=== PATIENT | female | born 1935 | race Caucasian/White ===

== ENCOUNTER → 2016-12-20 | Outpatient (CLI) | payer MEDICARE ==
[2016-12-20 11:16] LABS: Basophils % (A) 1 %; CH 31.6; CHCM 34.5; Eosinophils # (A) 0.3 k/uL (0-0.7); Eosinophils % (A) 5 %; HCT 42.4 % (34.0-46.0); HDW 2.64; HGB 14.5 gm/dL (11.4-16.0); Luc # (Auto) 0.21; Luc % (Auto) 4; Lymphocytes # (A) 1.4 k/uL (1.0-4.8); Lymphocytes % (A) 24 %; MCH 31.6 pg (25.0-35.0); MCHC 34.3 g/dL (31.0-37.0); MCV 92.1 fL (80.0-100.0); Mean Platelet Volume 7.9; Monocytes # (A) 0.3 k/uL (0-1.0); Monocytes % (A) 6 %; Neutrophils # (A) 3.4 k/uL (1.3-7.7); Neutrophils % (A) 61 %; RDW 13.2 % (11.5-15.5); WBC 5.6 k/uL (3.8-10.6); WBC (Perox) 6.14
[2016-12-20 11:28] LABS: Anion Gap 11 mmol/L; Blood Urea Nitrogen 18 mg/dL (7-17); Carbon Dioxide 25 mmol/L (22-30); Chloride 104 mmol/L (98-107); Non-African American GFR(MDRD) >60 (>60 ml/min/1.73 sqM); Potassium 4.4 mmol/L (3.5-5.1); Sodium 140 mmol/L (137-145)
== END | disposition home or self-care (01) ==
LOC: LABWHC1 10:19
PROVIDERS: ATTEND Obstetrics & Gynecology
DX: Z01.812 Encounter for preprocedural laboratory examination (principal); N81.4 Uterovaginal prolapse, unspecified
CPT/HCPCS: 80051; 82565; 84520; 85025; 87086

== ENCOUNTER 2016-12-30 07:49 | Day surgery (SDC) | payer MEDICARE, BC ==
[2016-12-29 12:52] VITALS: BMI 30.1
--- NOTE | 2016-12-29 21:01 | HP ---
DATE OF ADMISSION: 12/30/2016 HISTORY: This is an 81-year-old 11 para 12 woman who has symptomatic grade 3 pelvic prolapse. Specifically, she has a fourth-degree cystocele, third-degree cervical uterine prolapse and second-degree rectocele. She has symptoms of pelvic pressure, difficulty voiding, low back pain and tissue protrusion from the vagina. She denies vaginal bleeding, hematuria or blood in the stool. She denies chronic constipation or diarrhea. After evaluation of the options, she and her family have decided for definitive surgical management in the form of total abdominal hysterectomy with anterior colporrhaphy and possible posterior colporrhaphy. ALLERGIES: NONE. MEDICATIONS: 1. Aspirin 81 mg daily. 2. Calcium 500 mg daily. 3. Celebrex 200 mg p.r.n. 4. Levothyroxine 125 mcg daily. 5. Niacin 500 mg daily. 6. Norvasc 5 mg daily. 7. Zetia 10 mg daily. PAST MEDICAL HISTORY: Hypertension and hypothyroidism. PAST SURGICAL HISTORY: 1. Cataract surgery 2011. 2. Screening colonoscopy 2012. 3. History of knee replacement. 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 SOCIAL HISTORY: She is . Negative for tobacco, alcohol or drug use. She is retired. FAMILY HISTORY: Noncontributory. REVIEW OF SYSTEMS: Negative except for that described above. PHYSICAL EXAMINATION: Blood pressure 160/80, heart rate 72. Weight 170 pounds. Height 5 feet 2 inches. In general, this is a pleasant elderly female in no obvious distress. HEENT exam is unremarkable for any palpable lymphadenopathy or thyromegaly. The heart is of regular rate and rhythm with a mild grade 1 or 2 systolic flow murmur. The lungs are clear to auscultation bilaterally without wheezing. The abdomen is slim, soft and nontender. On pelvic examination, she has atrophic but normal-appearing external genitalia. With Valsalva maneuver there is tissue protrusion from the vagina. On speculum examination she has a fourth-degree cystocele, third-degree cervical uterine prolapse and second-degree rectocele. On bimanual examination the uterus feels small, freely mobile and in the midline. There are no adnexal abnormalities palpable. ASSESSMENT: This is an 81-year-old 11, para 12 woman with symptomatic grade 3 pelvic prolapse, including fourth-degree cystocele and third-degree cervical uterine prolapse. She desires definitive surgical management. She has received medical preoperative clearance. She is scheduled to undergo total vaginal hysterectomy with anterior colporrhaphy, possible posterior colporrhaphy, on 12/30/16. This procedure, its anticipated recovery time and hospital course have been reviewed with the patient and her family members. Risks also were reviewed and include but are not limited to bleeding, transfusion, laparotomy, damage to bowel, bladder, ureters and/or other pelvic and intra-abdominal structures. She may have anesthesia complications, DVT, PE and/or . Patient understands these risks. We also discussed the possibility of recurrence of pelvic prolapse or ongoing incontinence in the future. Consent was obtained. She is scheduled for the above-named procedure on 12/30/16.
[~2016-12-30 07:49] MED LIST: DEXAMETHASONE SOD PHOSPHATE 10 MG/ML 1 ML VIAL IV ONE; FAMOTIDINE 20 MG/2 ML VIAL IV PRN; HYDROmorphone 1 MG/ML 1 ML SYRINGE IVP PRN; LIDOCAINE 1% 20 ML VIAL (10MG/ML) FOR IV START INTRADERMA PRN
[2016-12-30] MEDS: LACTATED RINGERS 1,000 ML IV SCH ×3 (08:43→15:30)
[2016-12-30] MEDS: ONDANSETRON 4 MG/2 ML VIAL IVP ONE ×2 (08:48→11:06)
[2016-12-30] MEDS ORDERED: MORPHINE SULFATE (PF) 0.3 MG/0.3 ML SYR ONE (09:04)
[2016-12-30] MEDS ORDERED: PROPOFOL 10 MG/ML 20 ML VIAL IV ONE (09:04)
[2016-12-30] MEDS ORDERED: BACITRACIN 500 UNIT/GM OINT 28.4 GM TUBE TOPICAL ONE (09:29)
[2016-12-30] MEDS ORDERED: VASOPRESSIN 20 UNIT/ML 1 ML VIAL IV ONE ×3 (09:29)
[2016-12-30] MEDS ORDERED: LACTATED RINGERS 1,000 ML IV ONE (09:58)
--- NOTE | 2016-12-30 10:29 | P.OP ---
Date of Procedure: 12/30/16 Preoperative Diagnosis: Fourth degree cystocele Third degree cervical uterine prolapse Third-degree rectocele Postoperative Diagnosis: Same Procedure(s) Performed: Total vaginal hysterectomy with anterior and posterior colporrhaphy Anesthesia: spinal Surgeon: Danni Burk Ink Technician #1: Huy Mcgarry Estimated Blood Loss (ml): 25 Urine output (ml): 100 Pathology: none sent (Uterus) Condition: stable Disposition: PACU Indications for Procedure: Symptomatic stage III pelvic prolapse Operative Findings: Fourth degree cystocele, third degree cervical uterine prolapse, third-degree rectocele with extensive scarring and rectovaginal varicosities. Description of Procedure: After the patient was met in the preoperative holding area and all her questions were answered, taken to the anesthetic was administered without incident. Appropriate timeout procedure was undertaken. The patient was positioned, prepped and draped in the dorsal lithotomy position. Anesthetic was confirmed adequate. A weighted speculum was placed in the vagina and the above findings were noted. The cervix was grasped anteriorly with a double- tooth tenaculum. Dilute vasopressin solution was then infused in the vaginal mucosa circumferentially about the cervix. Scalpel was then utilized to make a circumferential incision about the cervix. The anterior, lateral and posterior vaginal Koza were then bluntly dissected away from the underlying cervical tissue without difficulty. The posterior peritoneum was placed on countertraction and entered sharply. The peritoneal tissue was tagged with a suture. Short weighted speculum was replaced with the long weighted speculum. The bladder was further advanced anteriorly bluntly. The uterosacral ligaments were then clamped, cut and suture ligated bilaterally. 2-0 Vicryl suture was utilized throughout muscles as indicated. The bladder was further advanced anteriorly and the uterine vasculature was identified. It was clamped, cut and suture ligated bilaterally. The posterior fundus of the uterus was delivered and the cornual pedicles were identified. A window was made in the anterior peritoneum. The cornual pedicles were then clamped, cut and doubly suture ligated. Both pedicles were inspected and hemostasis was noted. Neither ovary was visualized or palpable. The long weighted speculum was then removed and the short weighted speculum was replaced. The peritoneum was then closed in a pursestring fashion. The uterosacral ligaments were reapproximated in the midline incorporating the vaginal cuff for support. The posterior vaginal mucosa was then closed in an interrupted fashion with 0 Vicryl suture. Attention was then turned to the anterior repair. The anterior vaginal Koza was delineated using Allis clamps. The anterior vaginal Koza was then infused with dilute vasopressin solution. Metzenbaum scissors were utilized to superficially undermine the anterior vaginal Koza to a level of approximately 1- 1/2 cm below the urethral meatus. This was incised in the midline. Was delineated using Allis clamps. The bladder was then drained for proxy 100 mL of clear urine and a Mccormick catheter was left in place. The underlying bladder was dissected away from the vaginal mucosa and tilt the vesicovaginal fascia was identified and the bladder could be reduced. The vesicovaginal fascia was then reapproximated in the midline with Darlene plication sutures. Approximately 4 sutures were placed effectively reducing the cystocele. The excess vaginal mucosa was trimmed and the vaginal mucosa was then closed with 0 Vicryl suture in timing 2-0 Vicryl suture in a running locked fashion. Hemostasis was noted. Attention was then turned to the rectocele repair. There is noted to be extensive scarring at the perineum and introitus area consistent with old obstetrical scarring. This area was infused with dilute vasopressin solution as well as the posterior vaginal Koza. The remnants of the hymeneal ring were identified and grasped with Allis clamps. A triangular incision was made at the perineum and excess tissue was removed. The Metzenbaum scissors were utilized to undermine the posterior vaginal mucosa and this was incised approximately 3 cm towards the vaginal cuff. At this point very large perirectal vessels were noted. It was felt to the time of this dissection that this would not be able to be completed without entering into significant vascularity therefore the rectocele was not extended any further superiorly. The small area was repaired using plication stitches. A perineoplasty was then performed effectively decreasing the size of the introitus significantly and improving her prolapse. The skin was then closed over top in a subcuticular fashion. The vagina was then packed using bacitracin-soaked packing. All counts reported to me as correct by the operating staff and the patient was transported to recovery area in stable condition.
[2016-12-30] MEDS ORDERED: ACETAMINOPHEN IV (For NPO) 1,000 MG/100 ML VIAL IVPB ONE (11:12)
[2016-12-30] MEDS ORDERED: METOCLOPRAMIDE 5 MG/ML 2 ML VIAL IVP ONE (11:21)
[2016-12-30] MEDS ORDERED: PROMETHAZINE INJ 25 MG/ML 1 ML VIAL IVPB ONE (11:33)
[2016-12-30] MEDS ORDERED: IBUPROFEN 600 MG TAB PO PRN (12:02)
[2016-12-30] MEDS ORDERED: ONDANSETRON 4 MG/2 ML VIAL IVP PRN (12:02)
[2016-12-30] MEDS ORDERED: diphenhydrAMINE 50 MG/ML 1 ML VIAL IVP PRN (12:02)
[2016-12-30] MEDS ORDERED: Acetaminophen-Codeine 300-30mg TAB PO PRN (12:02)
[2016-12-30] MEDS ORDERED: METOCLOPRAMIDE 5 MG/ML 2 ML VIAL IVP PRN (14:45)
[2016-12-30] MEDS ORDERED: ACETAMINOPHEN IV (For NPO) 1,000 MG in EMPTY BAG 1 BAG IVPB ONE (17:00)
[2016-12-30] MEDS: ONDANSETRON 4 MG/2 ML VIAL IVP PRN (17:09)
[2016-12-30] MEDS: SENNOSIDES-DOCUSATE SODIUM 1 EACH TAB PO SCH (21:09)
[2016-12-31] MEDS: ONDANSETRON 4 MG/2 ML VIAL IVP PRN ×2 (00:32→08:48)
[2016-12-31] MEDS: LACTATED RINGERS 1,000 ML IV SCH ×2 (01:11→10:33)
[2016-12-31] MEDS ORDERED: LEVOTHYROXINE 125 MCG TAB PO SCH (06:30)
[2016-12-31 07:24] LABS: Basophils % (A) 0 %; CHCM 33.5; Eosinophils % (A) 0 %; HCT 37.1 % (34.0-46.0); HDW 2.58; HGB 12.5 gm/dL (11.4-16.0); Luc # (Auto) 0.18; Luc % (Auto) 2; Lymphocytes % (A) 10 %; MCH 31.3 pg (25.0-35.0); MCHC 33.7 g/dL (31.0-37.0); MCV 92.8 fL (80.0-100.0); Mean Platelet Volume 7.2; Monocytes # (A) 0.6 k/uL (0-1.0); Monocytes % (A) 6 %; Neutrophils # (A) 7.4 k/uL (1.3-7.7); Neutrophils % (A) 81 %; RBC 3.99 m/uL (3.80-5.40); RDW 13.2 % (11.5-15.5); WBC 9.2 k/uL (3.8-10.6); WBC (Perox) 9.79
--- NOTE | 2016-12-31 08:30 | P.DS ---
Providers Expected date of discharge: 12/31/16 Attending physician: Danni Burk Primary care physician: Stated None - Discharge Diagnosis(es) (1) S/P hysterectomy Current Visit: Yes Status: Acute (2) Cystocele or rectocele with uterine prolapse Current Visit: Yes Status: Acute (3) Hypertension Current Visit: Yes Status: Acute Hospital Course: This is an 81 year old 11 para 12 woman who had symptomatic grade 3 pelvic prolapse. She was admitted on 12/30/2016 and underwent a total vaginal hysterectomy with anterior and posterior colporrhaphy. Findings at the time of surgery were significant for a grade 4 cystocele, grade 3 cervical uterine prolapse and grade 2 rectocele. She had perineal scarring. Please see the operative report for details. Surgery was done under spinal anesthetic. On postoperative day #1 she is feeling very well. She reports her pain is well- controlled. She has started voiding trials as the Mccormick catheter has been removed. She has no vaginal bleeding and her abdominal exam is benign. She is tolerating a general diet. Her postop day 1 laboratory data is within normal limits and her home medications have been restarted. She will be discharged home later today pending outcomes of voiding trials. Plan - Discharge Summary New Discharge Prescriptions: Acetaminophen-Codeine 300-30mg [Tylenol w/codeine #3] 1 each PO Q4HR PRN #20 tab PRN Reason: Moderate Pain Ibuprofen [Motrin] 600 mg PO Q6HR PRN #30 tab PRN Reason: Mild Discomfort Discharge Medication List Aspirin 81 mg PO DAILY 12/22/16 [History] Calcium Carb/Vitamin D3/Vit K1 [Viactiv Soft Chew Tablet] 1 each PO DAILY [History] Gluc/Bon-MSM#1/C/Cirilo/Kodi/Bor [Glucosamine-Chondroitin Tablet] 1 each PO DAILY 12/22/16 [History] Hydrochlorothiazide [Hydrodiuril] 25 mg PO DAILY 12/22/16 [History] Levothyroxine Sodium [Synthroid] 125 mcg PO DAILY 12/22/16 [History] Multivits-Min/Iron/FA/Lutein [Centrum Silver Women Tablet] 1 each PO DAILY 12/22 [History] Niacin [Niaspan] 500 mg PO DAILY 12/22/16 [History] [place]-3 Fatty Acids/Fish Oil [Fish Oil 1,000 mg Softgel] 1 each PO DAILY [History] amLODIPine [Norvasc] 5 mg PO DAILY 12/22/16 [History] Acetaminophen-Codeine 300-30mg [Tylenol w/codeine #3] 1 each PO Q4HR PRN #20 tab 12/31/16 [Rx] Ibuprofen [Motrin] 600 mg PO Q6HR PRN #30 tab 12/31/16 [Rx] Sennosides-Docusate Sodium [Senokot-S] 2 each PO BID tab 12/31/16 [Rx] Follow up Appointment(s)/Referral(s): Danni Burk MD [STAFF PHYSICIAN] - 2 Weeks Activity/Diet/Wound Care/Special Instructions: Follow-up in the office 2 weeks postoperatively. Call the office with any concerning signs or symptoms including heavy vaginal bleeding, foul vaginal discharge, fever greater than 100.5, inability to void, severe nausea or vomiting. No heavy lifting greater than 10 pounds until seen in follow-up. No driving for 2 weeks. Nothing in the vagina, no intercourse for 6 weeks. Discharge Disposition: HOME SELF-CARE
[2016-12-31] MEDS: SENNOSIDES-DOCUSATE SODIUM 1 EACH TAB PO SCH (08:53)
[2016-12-31] MEDS ORDERED: HYDROCHLOROTHIAZIDE 25 MG TAB PO SCH (09:00)
[2016-12-31] MEDS ORDERED: amLODIPine 5 MG TAB PO SCH (09:00)
[2016-12-31] MEDS ORDERED: NIACIN TR 500 MG CAPSULE.ER PO SCH (09:00)
[2016-12-31 13:08] VITALS: BP 130/73; PULSE 70; RESP 16; TEMP 98
[2016-12-31] MEDS ORDERED: ACETAMINOPHEN TAB 325 MG TAB PO PRN (23:00)
== END 2016-12-31 14:11 | disposition home or self-care (01) ==
LOC: OR 07:49 → 6PED 10:21 → OR 12-31 14:11
PROVIDERS: ATTEND Obstetrics & Gynecology
DX: N81.3 Complete uterovaginal prolapse (principal); N85.01 Benign endometrial hyperplasia; N80.0 Endometriosis of uterus; I10 Essential (primary) hypertension; R01.1 Cardiac murmur, unspecified; E03.9 Hypothyroidism, unspecified; Z96.659 Presence of unspecified artificial knee joint; Z79.82 Long term (current) use of aspirin; Z79.899 Other long term (current) drug therapy
CPT/HCPCS: 88305; 85025; 58260; 57260; J2550; J2765; J2405 ×2; J0694; J0131; 88307